=== PATIENT | male | born 1985 | race Caucasian/White ===

== ENCOUNTER → 2023-09-20 | Emergency (ER) | payer BC, OTHER ==
[~2023-09-20] MED LIST: NA CHLORIDE 0.9% 1,000 ML ONE
[2023-09-20 20:57] LABS: Absolute Eosinophils 0.2 K/uL (0-0.5); Absolute Lymphocytes (CBC) 1.1 K/uL (0.7-4.9); Absolute Monocytes 0.4 K/uL (0.1-1.3); Absolute Neutrophil 6.7 K/uL (1.8-8.0); Basophils % 0.3 % (0-1.3); Eosinophils % 2.6 % (0-4.4); Hematocrit 39.3 % (39.6-49.0); Hemoglobin 13.5 g/dL (13.6-17.9); Lymphocytes % 12.6 % (15.3-44.8); MCH 30.7 pg (27.0-35.0); MCHC 34.5 g/dL (32.0-36.0); MPV 9.1 fL (7.6-11.3); Monocytes % 4.8 % (3.3-12.3); Neutrophils % 79.7 % (41.7-73.7); Nucleated Red Blood Cells % 0.1 % (0-0); Platelets 160 thou/uL (152-406); RBC Red Blood Cell Count 4.42 M/uL (4.33-5.43); Red Cell Distribution Width 12.8 % (12.1-15.2)
[2023-09-20 21:17] LABS: Albumin 3.6 g/dL (3.4-5.0); Anion Gap 11.7 mEq/L (5.0-15.0); Bilirubin Total 0.3 mg/dL (0.2-1.0); Globulin 3.6 g/dL (2.3-3.5); Potassium 3.7 mEq/L (3.5-5.1); Protein, Total 7.2 g/dL (6.4-8.2)
[2023-09-20 21:20] LABS: Specific Gravity > 1.030 (1.005-1.030); Sqamous Epithelial None Seen /HPF (None Seen); Urine Bacteria None Seen /HPF (<20); Urine Bilirubin NEGATIVE (Negative); Urine Blood Negative (Negative); Urine Clarity Clear (Clear); Urine Color Yellow (Yellow); Urine Culture Reflex Order NOT NEEDED; Urine Glucose NEGATIVE (Negative); Urine Ketones TRACE (Negative); Urine Microscopic Reflex YN ORDER UMIC; Urine Mucus Slight /HPF (None Seen); Urine Nitrite NEGATIVE (Negative); Urine Protein TRACE (Negative); Urine RBC None Seen /HPF (None Seen); Urine Urobilinogen 1+ (Normal); Urine WBC <5 /HPF (<5)
--- NOTE | 2023-09-21 00:36 | EDPHYS ---
Physician Documentation [facility] Name: Devan Kennedy Age: 38 yrs Sex: Male : 1985 Arrival Date: 09/20/2023 Time: 20:04 Bed 2 Private MD: ED Physician Silvio Santana HPI: 09/19 20:08 This 38 yrs old Male presents to ER via Unassigned with complaints of sp4 Abdominal Pain. 20:24 38-year-old male with history all Yeimy-en-Y gastric bypass 1-1/2 years ago at [address], presents with acute onset mid abdominal output and epigastric pain starting at noon today associated with nausea and dry heaving. Patient denied any other symptoms such as constipation diarrhea or vomiting. Patient states since his gastric bypass he has been doing well and losing weight. No other history of abdominal surgery and no medical allergies. Historical: - Allergies: 20:12 No Known Allergies; rv - PMHx: 20:12 None; rv - PSHx: 20:12 gastric bypass; rv - Immunization history:: Adult Immunizations up to date. - Social history:: Smoking status: Reported history of juuling and/or vaping. - Family history:: not pertinent. ROS: 20:24 Constitutional: Negative for fever, chills, and weight loss, sp4 20:31 Abdomen/GI: Positive for mid abdominal pain , positive for nausea sp4 20:31 All other systems are negative, Exam: 20:31 Constitutional: This is a well developed, well nourished patient who is awake, alert, sp4 and in no acute distress. Head/Face: Normocephalic, atraumatic. Eyes: Pupils equal round and reactive to light, extra-ocular motions intact. Lids and lashes normal. Conjunctiva and sclera are not injected. Cornea within normal limits. Periorbital areas with no swelling, redness, or edema. ENT: Nares patent. No nasal discharge, no septal abnormalities noted. Tympanic membranes are normal and external auditory canals are clear. Oropharynx with no redness, swelling, or masses, exudates, or evidence of obstruction, uvula midline. Mucous membranes moist. Neck: Trachea midline, no thyromegaly or masses palpated, and no cervical lymphadenopathy. Supple, full range of motion without nuchal rigidity, or vertebral point tenderness. Chest/axilla: Normal chest wall appearance and motion. Nontender with no deformity. No lesions are appreciated. Cardiovascular: Regular rate and rhythm with a normal S1 and S2. No gallops, murmurs, or rubs. Normal PMI, no JVD. No pulse deficits. Respiratory: Lungs have equal breath sounds bilaterally, clear to auscultation and percussion. No rales, rhonchi or wheezes noted. No increased work of breathing, no retractions or nasal flaring. Abdomen/GI: Soft, with normal bowel sounds. No distension or tympany. No guarding or rebound. Positive epigastric and upper mid abdominal tenderness without peritoneal signs. Back: No spinal tenderness. No costovertebral tenderness. Skin: Warm, dry with normal turgor. Normal color with no rashes, no lesions, and no evidence of cellulitis. MS/ Extremity: Pulses equal, no cyanosis. Neurovascular intact. Full, normal range of motion. Neuro: Awake and alert, GCS 15, oriented to person, place, time, and situation. Cranial nerves II-XII grossly intact. Motor strength 5/5 in all extremities. Sensory grossly intact. Psych: Awake, alert, with orientation to person, place and time. Behavior, mood, and affect are within normal limits Vital Signs: 20:11 BP 110 / 60; Pulse 54; Resp 16; Temp 98.6; Pulse Ox 99% ; Weight 90.72 kg; Height 5 ft. rv 11 in. ; 21:00 BP 120 / 73; Pulse 16; Resp 51; Pulse Ox 98% on R/A; cm10 22:00 BP 124 / 73; Pulse 51; Resp 16; Pulse Ox 98% on R/A; cm10 09/20 00:00 BP 107 / 62; Pulse 48; Resp 16; Pulse Ox 98% on R/A; cm10 09/19 20:11 Body Mass Index 27.89 (90.72 kg, 180.34 cm) rv MDM: 09/19 20:14 Patient medically screened. sp4 20:31 Differential Diagnosis altered mental status, sepsis, flu. Data reviewed: vital signs, sp4 nurses notes. 09/20 00:27 ED course: EXAM DESCRIPTION: Abdomen Pelvis W Contrast CLINICAL HISTORY: 38 years Male, sp4 mid abdominal pain, history of gastric bypass TECHNIQUE: Helical CT axial images are obtained from the lung bases to the pubic symphysis with IV contrast. No oral contrast was administered. Multiplanar reconstruction. This exam was performed according to our departmental dose-optimization program, which includes automated exposure control, adjustment of the mA and/or kV according to patient size and/or use of iterative reconstruction technique. COMPARISON: None. FINDINGS: LUNG BASES: No basilar consolidation or effusions. LIVER: Normal in size. Normal attenuation. No focal masses. HEPATOBILIARY: Status post cholecystectomy. No intra- or extrahepatic ductal dilatation. SPLEEN: Normal size. PANCREAS: Normal size and contour. No focal mass. ADRENAL GLANDS: Right adrenal gland 1.0 cm nodule with mean Hounsfield units of 80. Normal left adrenal gland. KIDNEYS: Bilateral kidneys are normal in size without obstructing calculi or hydronephrosis. No nephrolithiasis. No significant cysts are present. No focal solid mass. BOWEL AND MESENTERY: Status post gastric bypass surgery. Diffuse colonic fecal retention without bowel dilatation. No small or large bowel dilatation. No colonic diverticulosis. Normal appendix. No abnormal mesenteric lymphadenopathy. No free fluid or pneumoperitoneum. RETROPERITONEUM: Normal caliber abdominal aorta without aneurysm. No abnormal retroperitoneal lymphadenopathy. PELVIS: Urinary bladder is unremarkable. Normal-sized prostate gland. ABDOMINAL WALL: The abdominal wall is intact. BONES: No suspicious osseous lytic or blastic lesions seen. IMPRESSION: 1. No acute intra-abdominal or pelvic disease. 2. Diffuse colonic fecal retention without bowel dilatation. Correlate for constipation. 3. Status post gastric bypass surgery. 4. Status post cholecystectomy. 5. Right adrenal gland 1.0 cm nodule, most likely representing an adenoma.Recommend follow-up adrenal washout CT in 1 year. . 00:41 ED course: Patient stable for discharge home with as needed Bentyl, as needed Reglan, sp4 also clear liquid diet for the next 12 hours. Patient advised to see primary care doctor for repeat CT to reevaluate the right adrenal gland 1 cm nodule which is most likely an adenoma.. 09/19 20:23 Order name: CBC with Diff; Complete Time: 23:31 sp4 09/19 20:23 Order name: CMP; Complete Time: 23:31 sp4 09/19 20:23 Order name: Lipase; Complete Time: 23:31 sp4 09/19 20:23 Order name: Urinalysis w/ reflexes; Complete Time: 23:31 sp4 09/19 20:23 Order name: CT Abd/Pelvis - IV Contrast Only sp4 09/19 20:23 Order name: IV Saline Lock; Complete Time: 20:45 sp4 09/19 20:23 Order name: Labs collected and sent; Complete Time: 20:45 sp4 Administered Medications: 09/19 20:45 Drug: NS 0.9% IV 1000 ml IV at 1 bolus Per protocol; 1000 mL bolus Route: IV; Rate: 1 cm10 bolus; Site: left antecubital; 21:45 Follow up: Response: No adverse reaction; IV Status: Completed infusion; IV Intake: cm10 1000ml Disposition Summary: 09/21/23 00:35 Discharge Ordered Problem: new sp4 Symptoms: have improved sp4 Condition: Stable sp4 Diagnosis - Epigastric pain sp4 - History of gastric bypass, constipation sp4 Followup: sp4 - With: Private Physician - When: 10 - 14 days - Reason: Recheck today's complaints Discharge Instructions: - Discharge Summary Sheet sp4 - Adrenal Adenoma sp4 Forms: - Patient Portal Instructions sp4 Prescriptions: - Reglan 10 mg Oral tablet - take 1 tablet ORAL route every 6 hours PRN nausea or pain; 30 tablet; Refills: sp4 0, Product Selection Permitted - dicyclomine 20 mg Oral tablet - take 1 tablet ORAL route every 6 hours PRN abdominal pain; 30 tablet; Refills: sp4 0, Product Selection Permitted Signatures: Dispatcher [employer] Eligio Jamison RN RN rv Potepalov, Sergey, MD MD sp4 Shari Murphy RN RN cm10 Corrections: (The following items were deleted from the chart) 20:13 20:12 Home Meds: None; rv rv 20:13 20:12 Home Meds: gastric bypass; rv rv 20:13 20:12 PSHx: None; rv rv
--- NOTE | 2023-09-21 00:36 | ER ---
Nurse's Notes [facility] Name: Devan Kennedy Age: 38 yrs Sex: Male : 1985 Arrival Date: 09/20/2023 Time: 20:04 Bed 2 Private MD: Diagnosis: Epigastric pain;History of gastric bypass, constipation Presentation: 09/19 20:11 Chief complaint: Patient states: fluctuating sharp pain on the upper abd pain 1 day. rv denies nausea, vomiting, diarrhea. normal BM today. Coronavirus screen: At this time, the client does not indicate any symptoms associated with coronavirus-19. Ebola Screen: No symptoms or risks identified at this time. Initial Sepsis Screen: Does the patient meet any 2 criteria? No. Patient's initial sepsis screen is negative. Does the patient have a suspected source of infection? No. Patient's initial sepsis screen is negative. Risk Assessment: Do you want to hurt yourself or someone else? Patient reports no desire to harm self or others. 20:11 Method Of Arrival: Ambulatory rv 20:11 Acuity: CHRIS 3 rv 20:12 Onset of symptoms was September 20, 2023. rv Triage Assessment: 20:12 General: Appears in no apparent distress. Behavior is calm, cooperative. Pain: rv Complains of pain in abdomen. Neuro: Level of Consciousness is awake, alert, obeys commands, Oriented to person, place, time, situation. Cardiovascular: Capillary refill < 3 seconds Patient's skin is warm and dry. Respiratory: Airway is patent Respiratory effort is even, unlabored. GI: Abdomen is flat, non-distended. : No signs and/or symptoms were reported regarding the genitourinary system. Derm: Skin is intact. Historical: - Allergies: 20:12 No Known Allergies; rv - PMHx: 20:12 None; rv - PSHx: 20:12 gastric bypass; rv - Immunization history:: Adult Immunizations up to date. - Social history:: Smoking status: Reported history of juuling and/or vaping. - Family history:: not pertinent. Screenin:13 [facility] ED Fall Risk Assessment (Adult) History of falling in the last 3 months, rv including since admission No falls in past 3 months (0 pts) Score/Fall Risk Level 0 - 2 = Low Risk Oriented to surroundings, Maintained a safe environment, Educated pt \T\ family on fall prevention, incl call for assistance when getting out of bed, Assessed \T\ reinforced patient's understanding of fall precautions. Abuse screen: Denies threats or abuse. Denies injuries from another. Nutritional screening: No deficits noted. Tuberculosis screening: No symptoms or risk factors identified. 20:47 [facility] ED Fall Risk Assessment (Adult) History of falling in the last 3 months, cm10 including since admission No falls in past 3 months (0 pts) Confusion or Disorientation No (0 pts) Intoxicated or Sedated No (0 pts) Impaired Gait No (0 pts) Mobility Assist Device Used No (0 pt) Altered Elimination No (0 pt) Score/Fall Risk Level 0 - 2 = Low Risk Oriented to surroundings, Maintained a safe environment, Assessed \T\ reinforced patient's understanding of fall precautions, Hourly rounding (assess needs \T\ fall precautionary measures) done. Assessment: 20:35 General: Appears in no apparent distress. comfortable, Behavior is calm, cooperative. cm10 Pain: Complains of pain in epigastric area, right upper quadrant and left upper quadrant Pain does not radiate. Pain currently is 4 out of 10 on a pain scale. Quality of pain is described as sharp. Neuro: No deficits noted. Level of Consciousness is awake, alert, obeys commands, Oriented to person, place, time, situation. Cardiovascular: No deficits noted. Heart tones present Capillary refill < 3 seconds Patient's skin is warm and dry. Respiratory: No deficits noted. Airway is patent Respiratory effort is even, unlabored, Respiratory pattern is regular, symmetrical, Breath sounds are clear bilaterally. GI: Bowel sounds present X 4 quads. Abd is soft X 4 quads Abdomen is tender to palpation in right upper quadrant and left upper quadrant Reports upper abdominal pain. : No deficits noted. No signs and/or symptoms were reported regarding the genitourinary system. EENT: No deficits noted. No signs and/or symptoms were reported regarding the EENT system. Derm: No deficits noted. No signs and/or symptoms reported regarding the dermatologic system. Skin is intact, Skin is pink, warm \T\ dry. Musculoskeletal: No deficits noted. No signs and/or symptoms reported regarding the musculoskeletal system. Range of motion: intact in all extremities. 21:45 Reassessment: Patient appears in no apparent distress at this time. Patient and/or cm10 family updated on plan of care and expected duration. Pain level reassessed. Patient is alert, oriented x 3, equal unlabored respirations, skin warm/dry/pink. 23:55 Reassessment: Patient appears in no apparent distress at this time. Patient and/or cm10 family updated on plan of care and expected duration. Pain level reassessed. Patient is alert, oriented x 3, equal unlabored respirations, skin warm/dry/pink. Patient denies pain at this time. Patient states feeling better. Patient states symptoms have improved. Vital Signs: 20:11 BP 110 / 60; Pulse 54; Resp 16; Temp 98.6; Pulse Ox 99% ; Weight 90.72 kg; Height 5 ft. rv 11 in. ; 21:00 BP 120 / 73; Pulse 16; Resp 51; Pulse Ox 98% on R/A; cm10 22:00 BP 124 / 73; Pulse 51; Resp 16; Pulse Ox 98% on R/A; cm10 09/20 00:00 BP 107 / 62; Pulse 48; Resp 16; Pulse Ox 98% on R/A; cm10 09/19 20:11 Body Mass Index 27.89 (90.72 kg, 180.34 cm) rv ED Course: 09/19 20:06 Patient arrived in ED. ra3 20:08 Silvio Santana MD is Attending Physician. sp4 20:12 Triage completed. rv 20:13 Arm band placed on right wrist. rv 20:13 Patient has correct armband on for positive identification. Client placed on continuous rv cardiac and pulse oximetry monitoring. NIBP monitoring applied. 20:13 No provider procedures requiring assistance completed. rv 20:24 Shari Murphy, RN is Primary Nurse. cm10 20:36 Initial lab(s) drawn, by ma, sent to lab. Urine collected: clean catch specimen, clear. cm10 Inserted saline lock: 20 gauge in left antecubital area, using aseptic technique. Blood collected. 22:[address] via wheelchair. cm10 22:[address] from [address]. cm10 22:59 CT Abd/Pelvis - IV Contrast Only In Process Unspecified. EDMS 23:55 Pillow given. cm10 09/20 00:47 Provided Education on: Follow-up instructions.. cm10 00:47 IV discontinued, intact, bleeding controlled, No redness/swelling at site. Pressure cm10 dressing applied. Administered Medications: 09/19 20:45 Drug: NS 0.9% IV 1000 ml IV at 1 bolus Per protocol; 1000 mL bolus Route: IV; Rate: 1 cm10 bolus; Site: left antecubital; 21:45 Follow up: Response: No adverse reaction; IV Status: Completed infusion; IV Intake: cm10 1000ml Medication: 20:13 VIS not applicable for this client. rv Intake: 21:45 IV: 1000ml; Total: 1000ml. cm10 Outcome: 09/20 00:35 Discharge ordered by . sp4 00:47 Discharged to home ambulatory, with family, cm10 00:47 Condition: good 00:47 Discharge instructions given to patient, Instructed on discharge instructions, follow up and referral plans. medication usage, Demonstrated understanding of instructions, follow-up care, medications, Prescriptions given X 2, 00:47 Patient left the ED. cm10 Signatures: Dispatcher [employer] EDMS Eligio Lockhart RN RN Silvio Hubbard MD MD sp4 Shari Murphy RN RN cm10 Zora Berry ra3 Corrections: (The following items were deleted from the chart) 09/19 20:13 20:12 Home Meds: None; rv rv 20: 20:12 Home Meds: gastric bypass; rv rv : 20:12 PSHx: None; rv rv
[2023-09-21 01:09] VITALS: BP 107/62; TEMP 98.6; O2SAT 98
--- NOTE | 2023-09-22 12:34 | RAD REPORT ---
EXAM DESCRIPTION: CT - Abdomen Pelvis W Contrast - 09/21/2023 6:35 am CLINICAL HISTORY: 38 years Male, mid abdominal pain, history of gastric bypass TECHNIQUE: Helical CT axial images are obtained from the lung bases to the pubic symphysis with IV co ntrast. No oral contrast was administered. Multiplanar reconstruction. This exam was performed accord ing to our departmental dose-optimization program, which includes automated exposure control, adjustm ent of the mA and/or kV according to patient size and/or use of iterative reconstruction technique. COMPARISON: None. FINDINGS: LUNG BASES: No basilar consolidation or effusions. LIVER: Normal in size. Normal attenuation. No focal masses. HEPATOBILIARY: Status post cholecystectomy. No intra- or extrahepatic ductal dilatation. SPLEEN: Normal size. PANCREAS: Normal size and contour. No focal mass. ADRENAL GLANDS: Right adrenal gland 1.0 cm nodule with mean Hounsfield units of 80. Normal left adren al gland. KIDNEYS: Bilateral kidneys are normal in size without obstructing calculi or hydronephrosis. No nep hrolithiasis. No significant cysts are present. No focal solid mass. BOWEL AND MESENTERY: Status post gastric bypass surgery. Diffuse colonic fecal retention without yasmine l dilatation. No small or large bowel dilatation. No colonic diverticulosis. Normal appendix. No ab normal mesenteric lymphadenopathy. No free fluid or pneumoperitoneum. RETROPERITONEUM: Normal caliber abdominal aorta without aneurysm. No abnormal retroperitoneal lymphad enopathy. PELVIS: Urinary bladder is unremarkable. Normal-sized prostate gland. ABDOMINAL WALL: The abdominal wall is intact. BONES: No suspicious osseous lytic or blastic lesions seen. IMPRESSION: 1. No acute intra-abdominal or pelvic disease. 2. Diffuse colonic fecal retention without bowel dilatation. Correlate for constipation. 3. Status post gastric bypass surgery. 4. Status post cholecystectomy. 5. Right adrenal gland 1.0 cm nodule, most likely representing an adenoma.Recommend follow-up adren al washout CT in 1 year. If stable for \X2265\ 1 year, no further follow-up imaging. JACR 2017 Feb; 1 4(8):1038-44, JCAT 2016 Sep-Oct; 40(2):194-200, Urol J spring; 3(2):71-4. Electronically signed by: Garland Anguiano MD 09/20/2023 11:30 PM CDT Due to temporary technical issues with the PACS/Fluency reporting system, reports are being signed by the in house radiologist without review as a courtesy to ensure prompt reporting. The interpreting r adiologist is fully responsible for the content of the report.
== END ==
LOC: ER 20:04
DX: K59.00 Constipation, unspecified (principal); Z98.84 Bariatric surgery status
CPT/HCPCS: 85025; 81001; 36415; 83690; 80053; 74177; Q9967; J7030; 96360; 99285